=== PATIENT | female | born 1990 | race African-American/Black ===

== ENCOUNTER 2016-08-24 19:56 | Emergency (ER) | payer SELFPAY ==
[~2016-08-24] VITALS: Ht 157.5 cm; Wt 95.9 kg
[2016-08-24] MEDS ORDERED: LIDOCAINE HCL BUFFERED 1% 20 ML VIAL INJ ONE (23:00)
[2016-08-24] MEDS ORDERED: CefTRIAXone SODIUM 1 GM/VIAL IM ONE (23:00)
[2016-08-24] MEDS ORDERED: BUPIVACAINE HCL 0.25% 50 ML VIAL INJ ONE (23:30)
[2016-08-24] MEDS ORDERED: BUPIVACAINE HCL/PF 0.25% 10 ML VIAL INJ ONE (23:45)
[2016-08-25 00:48] VITALS: BP 129/83
== END 2016-08-25 00:49 | disposition home or self-care (01) ==
LOC: EMS 20:04
DX: K04.7 Periapical abscess without sinus (principal); K02.9 Dental caries, unspecified; F17.200 Nicotine dependence, unspecified, uncomplicated
CPT/HCPCS: 64400; 99284; J0696; J3490 ×2